=== PATIENT | female | born 1970 | race Caucasian/White ===

== ENCOUNTER → 2016-07-18 | Outpatient (CLI) | payer BC ==
[~2016-07-18] MED LIST: CATHETER FLUSH 10 ML SYR IV PRN; DOCU-143 PO; FAMO-119 PO; HYDR-3812 PO; IOHEXOL 350 MG/ML 150 ML (OMNIPAQUE 350) VIAL IV ONE; NS 100 ML (IVPB) BAG IV ONE; PANT40TA2 PO; PANT40TA3 PO; RT-ALBUTEROL SULF 2.5 MG/3 ML PRE-MIX VIAL IH ONE
--- NOTE | 2016-07-18 11:13 | Diagnostic Imaging Report ---
PROCEDURE: CT angiography of the chest with contrast. TECHNIQUE: Multiple contiguous axial images were obtained through the chest after uneventful bolus administration of intravenous contrast. Reconstructed CTA MIP acquisitions were also performed. INDICATION: Hypoxia. 125 mL of Omnipaque 350 is administered intravenously. FINDINGS: The pulmonary arteries are well opacified with no filling defects to suggest pulmonary embolism. The thoracic aorta is normal in caliber. There is no dissection or aneurysm. The heart size is normal. No pleural or pericardial effusion. There is no mediastinal mass. No mediastinal, hilar or axillary lymphadenopathy is seen. The lungs demonstrate minimal atelectasis or scarring in the right middle lobe and inferior lingula. Minimal atelectasis in the lower lobes is seen. Cholecystectomy clips are noted. The osseous structures appear grossly unremarkable. IMPRESSION: 1. No PE or aortic dissection. 2. Minimal atelectasis or scarring in the right middle lobe and inferior lingula. Dictated by: Dictated on workstation # [id number]
== END ==
LOC: RAD 07:47
PROVIDERS: ATTEND Internal Medicine Critical Care Medicine
DX: R06.02 Shortness of breath (principal); E66.9 Obesity, unspecified; Z90.49 Acquired absence of other specified parts of digestive tract
CPT/HCPCS: 71275; 94060; 94640; 94726; 94729

== ENCOUNTER 2016-12-01 20:04 | Outpatient (CLI) | payer BC ==
[~2016-12-01 20:04] MED LIST changes: -CATHETER FLUSH 10 ML SYR IV PRN; -IOHEXOL 350 MG/ML 150 ML (OMNIPAQUE 350) VIAL IV ONE; -NS 100 ML (IVPB) BAG IV ONE; -RT-ALBUTEROL SULF 2.5 MG/3 ML PRE-MIX VIAL IH ONE
== END 2016-12-02 06:15 | disposition home or self-care (01) ==
LOC: SLEEP 20:04
PROVIDERS: ATTEND Otolaryngology Otolaryngology/Facial Plastic Surgery
DX: G47.36 Sleep related hypoventilation in conditions classified elsewhere (principal); G47.10 Hypersomnia, unspecified
CPT/HCPCS: 95810

== ENCOUNTER → 2017-01-15 | Outpatient (CLI) | payer BC ==
--- NOTE | 2017-01-15 13:27 | Diagnostic Imaging Report ---
PROCEDURE: US abdomen complete. TECHNIQUE: Multiple real-time grayscale images were obtained over the abdomen in various projections. INDICATION: Dull pain in the right upper quadrant. FINDINGS: The pancreas is obscured by bowel gas. The liver is fairly homogeneous with no focal lesion seen. There is liver enlargement however measuring 22 cm craniocaudally. The color Doppler demonstrates hepatopetal flow in the portal vein. The visualized portion of the abdominal aorta is normal in caliber. The IVC visualized portions appear patent. The CBD is obscured by bowel gas. The spleen is 9.4 cm in length, normal. The left kidney is 13.2 and the right kidney is 11.4 cm in length. No hydronephrosis or focal lesion. No ascites or fluid collection is noted. The gallbladder has been removed. IMPRESSION: Hepatomegaly. Dictated by: Dictated on workstation # [id number]
== END ==
LOC: RAD 09:38
PROVIDERS: ATTEND Physician Assistant Medical
DX: R16.0 Hepatomegaly, not elsewhere classified (principal)
CPT/HCPCS: 76700

== ENCOUNTER → 2017-02-25 | Outpatient (CLI) | payer BC ==
--- NOTE | 2017-02-26 10:57 | Diagnostic Imaging Report ---
EXAMINATION: Bilateral screening mammogram 2D views with tomosynthesis. The current study was also evaluated with a Computer Aided Detection (CAD) system. INDICATION: Screening. PERSONAL HISTORY: No current complaints stated on the questionnaire. COMPARISON: 02/24/2016. FINDINGS: The breasts are composed of scattered fibroglandular densities. There is slightly more dense parenchyma in the outer aspect of the right breast. Benign-appearing calcifications are seen. Allowing for technique and positional differences, no suspicious change is seen. IMPRESSION: No significant change. ACR BI-RADS Category 2: Benign findings. Result letter will be mailed to the patient. Note: At least 10% of breast cancer is not imaged by mammography. Dictated by: Dictated on workstation # [id number]
== END ==
LOC: RAD 09:53
PROVIDERS: ATTEND Physician Assistant Medical
DX: Z12.31 Encounter for screening mammogram for malignant neoplasm of breast (principal)
CPT/HCPCS: 77067

== ENCOUNTER 2018-01-06 12:38 | Outpatient (CLI) | payer BC ==
[~2018-01-06] VITALS: Ht 162.6 cm; Wt 95.3 kg
[~2018-01-06 12:38] MED LIST changes: +ACHD5005 PO; -HYDR-3812 PO; +METO-370 PO
[2018-01-06] MEDS ORDERED: FAMO20TA45 PO (13:21)
== END 2018-01-06 13:24 | disposition home or self-care (01) ==
LOC: PREOP 12:38
PROVIDERS: ATTEND Otolaryngology Otolaryngology/Facial Plastic Surgery
DX: Z01.818 Encounter for other preprocedural examination (principal)

== ENCOUNTER 2018-01-09 06:01 | Day surgery (SDC) | payer BC ==
[~2018-01-09] VITALS: Ht 162.6 cm; Wt 95.3 kg
[~2018-01-09 06:01] MED LIST changes: +FAMO20TA45 PO
[2018-01-09 06:35] VITALS: BP 122/78
[2018-01-09] MEDS ORDERED: DEXAMETHASONE 10 MG/ML (DECADRON) 1 ML VIAL ONE (06:49)
[2018-01-09] MEDS ORDERED: SEVOFLURANE (ULTANE) 15 ML INHAL SOLN ONE (06:49)
[2018-01-09] MEDS ORDERED: ROCURONIUM 10 MG/ML 5 ML SYRINGE IV ONE ×2 (06:49→06:55)
[2018-01-09] MEDS ORDERED: MIDAZOLAM 2 MG/2 ML (VERSED) VIAL ONE (06:49)
[2018-01-09] MEDS ORDERED: proPOfol 200 MG/20 ML (DIPRIVAN) VIAL IV ONE (06:49)
[2018-01-09] MEDS ORDERED: fentaNYL INJECTION 100 MCG/2 ML AMP ONE (06:49)
[2018-01-09] MEDS ORDERED: FAMOTIDINE 20MG/2ML IV (PEPCID) ONE (06:49)
[2018-01-09] MEDS ORDERED: LIDOCAINE PF 2% 5 ML (XYLOCAINE) VIAL ONE (06:49)
[2018-01-09] MEDS ORDERED: SCOPOLAMINE 1.5 MG (TRANSDERM-SCOP) PATCH ONE (06:49)
[2018-01-09] MEDS ORDERED: ONDANSETRON 4 MG/2 ML (SDV) Z0FRAN ONE ×2 (06:49)
--- NOTE | 2018-01-09 06:57 | Progress Note-Pre Operative ---
Pre-Operative Progress Note H&P Reviewed The H&P was reviewed, patient examined and no changes noted. Date Seen by Provider: Jan 09, 2018 Time Seen by Provider: 06: Date H&P Reviewed: Jan 09, 2018 Time H&P Reviewed: :30 Pre-Operative Diagnosis: Bilat hyper of Inf Turbs with Nasal Congestion JUAQUIN WELLS MD Jan 09, 2018 6:56 am
[2018-01-09] MEDS ORDERED: SCOPOLAMINE 1.5 MG (TRANSDERM-SCOP) PATCH TD ONE (07:00)
[2018-01-09] MEDS ORDERED: ONDANSETRON 4 MG/2 ML (SDV) Z0FRAN IV ONE (07:00)
[2018-01-09] MEDS ORDERED: FAMOTIDINE 20MG/2ML IV (PEPCID) IV ONE (07:00)
[2018-01-09] MEDS ORDERED: LIDOCAINE/EPI 1%-1:200,000 (XYLOCAINE) 10 ML VIAL ONE (07:19)
[2018-01-09] MEDS ORDERED: PHENYLEPHRINE 0.5% NASAL SPR (NEO-SYNEPHRINE) REG ONE (07:19)
[2018-01-09] MEDS ORDERED: LACTATED RINGERS 1,000 ML IV PRN (07:20)
[2018-01-09] MEDS ORDERED: NEOSTIGMINE 1 MG/ML 5 ML SYRINGE ONE (07:50)
[2018-01-09] MEDS ORDERED: GLYCOPYRROLATE 0.2 MG/ML (ROBINUL) 2 ML VIAL ONE (07:50)
--- NOTE | 2018-01-09 07:52 | Progress Note-Post Operative ---
Post-Operative Progess Note Surgeon (s)/Central Station Operator (s) Surgeon JUAQUIN WELLS MD Central Station Operator n/a Pre-Operative Diagnosis Bilat hyper of Inf Turbs with Nasal Congestion Post-Operative Diagnosis same Post-Op Procedure Note Date of Procedure: Jan 09, 2018 Name of Procedure Performed: Bilat PArtial Reduction of the INferior Turbinates Description & Findings Description and Findings: n/a Anesthesia Type GET Estimated Blood Loss minimal Packing none. Specimen(s) collected/removed None JUAQUIN WELLS MD Jan 09, 2018 7:52 am
[2018-01-09] MEDS ORDERED: D5 1/2 NS W/KCL 20 MEQ/L 1,000 ML IV SCH (07:54)
[2018-01-09] MEDS ORDERED: PROMETHAZINE INJ 25 MG/ML (PHENERGAN) AMP IVP PRN (08:00)
[2018-01-09] MEDS ORDERED: HYDROcodone/APAP 5 MG/325 MG (LORTAB) TAB PO PRN (08:00)
[2018-01-09] MEDS ORDERED: ACETAMINOPHEN 325 MG TABLET PO PRN (08:00)
[2018-01-09] MEDS ORDERED: morphine INJ 10 MG/ML 1ML (SYR OR VIAL) IVP ONE (08:15)
[2018-01-09] MEDS ORDERED: fentaNYL INJECTION 100 MCG/2 ML AMP IVP ONE (08:15)
[2018-01-09] MEDS ORDERED: ONDANSETRON 4 MG/2 ML (SDV) Z0FRAN IVP PRN (08:15)
[2018-01-09] MEDS ORDERED: HYDR-3812 PO (08:36)
[2018-01-09 08:45] VITALS: BP 115/64
[2018-01-09] MEDS ORDERED: ACETAMINOPHEN 500 MG TAB (TYLENOL) ONE (09:14)
[2018-01-09 09:15] VITALS: BP 116/64
[2018-01-09 09:30] VITALS: BP 116/64
[2018-01-09] MEDS ORDERED: ACETAMINOPHEN 500 MG TAB (TYLENOL) PO ONE (10:00)
--- NOTE | 2018-01-09 18:27 | Anesthesia-General Post-Op ---
General Patient Condition Mental Status/LOC: Same as Preop Cardiovascular: Satisfactory Nausea/Vomiting: Absent Respiratory: Satisfactory Pain: Controlled Complications: Absent Post Op Complications Complications None Follow Up Care/Instructions Patient Instructions None needed. Anesthesia/Patient Condition Patient Condition Patient was seen after the procedure this morning and she was doing well, no complaints, stable vital signs, no apparent adverse anesthesia problems. EMMA OLIVA DO Jan 09, 2018 18:27
== END 2018-01-09 09:43 | disposition home or self-care (01) ==
LOC: SDC 06:01
PROVIDERS: ATTEND Otolaryngology Otolaryngology/Facial Plastic Surgery
DX: J34.3 Hypertrophy of nasal turbinates (principal); I10 Essential (primary) hypertension; K21.9 Gastro-esophageal reflux disease without esophagitis; Z79.899 Other long term (current) drug therapy
CPT/HCPCS: 84703; 87081

== ENCOUNTER → 2018-02-26 | Outpatient (CLI) | payer BC ==
[~2018-02-26] MED LIST changes: +HYDR-3812 PO
--- NOTE | 2018-02-26 10:39 | Diagnostic Imaging Report ---
Indication: Routine screening. Comparison is made with prior study 02/25/2017 and 02/24/2016. 2-D and 3-D bilateral screening mammography was performed with CAD. Both breasts are heterogeneously dense, limiting the sensitivity of mammography. The parenchymal pattern is stable. No mass or malignant appearing microcalcifications are seen. Axillae are unremarkable. Impression: BI-RADS category one No mammographic features suspicious for malignancy are identified. ACR BI-RADS Category 1: Negative. Result letter will be mailed to the patient. Note: At least 10% of breast cancer is not imaged by mammography. Dictated by: Dictated on workstation # [id number]
== END ==
LOC: RAD 08:05
PROVIDERS: ATTEND Nurse Practitioner
DX: Z12.31 Encounter for screening mammogram for malignant neoplasm of breast (principal)
CPT/HCPCS: 77067

== ENCOUNTER → 2019-02-27 | Outpatient (CLI) | payer BC ==
[~2019-02-27] MED LIST changes: -METO-370 PO; +METO50TA7 PO
--- NOTE | 2019-03-02 09:06 | Diagnostic Imaging Report ---
INDICATION: Screening The current study was also evaluated with a Computer Aided Detection (CAD) system. 3-D Tomographic imaging was also performed. Comparison made with prior examination 02/26/2018, 02/25/2017 and 02/24/2016. FINDINGS: There are scattered fibroglandular densities bilaterally. There are benign type calcifications. There is no dominant mass, spiculated lesion or suspicious calcification identified. The skin and nipples and axilla are unremarkable. IMPRESSION: Category 2 benign. ACR BI-RADS Category 2: Benign findings. Result letter will be mailed to the patient. Note: At least 10% of breast cancer is not imaged by mammography. Dictated by: Dictated on workstation # [id number]
== END ==
LOC: RAD 14:49
PROVIDERS: ATTEND Student in an Organized Health Care Education/Training Program
DX: Z12.31 Encounter for screening mammogram for malignant neoplasm of breast (principal)
CPT/HCPCS: 77067

== ENCOUNTER → 2020-10-31 | Outpatient (CLI) | payer OTHER ==
[~2020-10-31] MED LIST changes: -HYDR-3812 PO; -PANT40TA3 PO; +PANT40TA52 PO
--- NOTE | 2020-10-31 12:01 | Diagnostic Imaging Report ---
INDICATION: Routine screening. COMPARISON: 02/27/2019 and 02/26/2018. TECHNIQUE: 2D and 3D bilateral screening mammography was performed with CAD. FINDINGS: Both breasts are heterogeneously dense, limiting the sensitivity of mammography. The parenchymal pattern is stable. No mass or malignant-appearing microcalcifications are seen. There are benign calcifications. The axillae are unremarkable. IMPRESSION: No mammographic features suspicious for malignancy are identified. ACR BI-RADS Category 2: Benign findings. Result letter will be mailed to the patient. Note: At least 10% of breast cancer is not imaged by mammography. Dictated by: Dictated on workstation # [id number]
== END ==
LOC: RAD 11:00
PROVIDERS: ATTEND Obstetrics & Gynecology
DX: Z12.31 Encounter for screening mammogram for malignant neoplasm of breast (principal)
CPT/HCPCS: 77063; 77067

== ENCOUNTER 2021-01-17 06:04 | Outpatient (CLI) | payer OTHER ==
[~2021-01-17] VITALS: Ht 162.6 cm; Wt 101.6 kg
[2021-01-17] MEDS ORDERED: ROSU5TAB PO (15:02)
== END 2021-01-17 15:22 | disposition home or self-care (01) ==
LOC: PREOP 06:04
PROVIDERS: ATTEND Surgery
DX: Z01.818 Encounter for other preprocedural examination (principal)

== ENCOUNTER 2021-01-24 08:26 | Day surgery (SDC) | payer OTHER ==
[~2021-01-24] VITALS: Ht 162.6 cm; Wt 101.6 kg
[~2021-01-24 08:26] MED LIST changes: +ROSU5TAB PO
[2021-01-24] MEDS ORDERED: LACTATED RINGERS 1,000 ML IV ONE (08:30)
[2021-01-24] MEDS ORDERED: LACTATED RINGERS 1,000 ML IV STA (08:37)
[2021-01-24 08:45] VITALS: BP 149/85
[2021-01-24] MEDS ORDERED: HURRICAINE EXT TUBE (BENZOCAINE) XX PRN (08:45)
[2021-01-24] MEDS ORDERED: MIDAZOLAM 2 MG/2 ML (VERSED) VIAL ONE (09:34)
[2021-01-24] MEDS ORDERED: PROPOFOL INJECTION 50 ML IV ONE (09:34)
[2021-01-24 10:06] VITALS: BP 146/85
[2021-01-24 10:10] VITALS: BP 144/70
--- NOTE | 2021-01-24 10:10 | Progress Note-Post Operative ---
Post-Operative Progess Note Surgeon (s)/Administrative Asst (s) Surgeon STEVEN JONES DO Administrative Asst: na Pre-Operative Diagnosis family hx colon cancer, gerd Post-Operative Diagnosis hiatal hernia, GE polyp, diverticulosis Procedure & Operative Findings Date of Procedure 01/24/21 Procedure Performed/Findings EGD with antral biopsy and hot biopsy polypectomy at GE junction, colonoscopy Anesthesia Type per IMAGERY ANALYST Estimated Blood Loss Estimated blood loss (mL): scant Specimens/Packing Specimens Removed GE junction polyp via hot biopsy STEVEN JONES DO Jan 24, 2021 10:10
[2021-01-24] MEDS ORDERED: PANT40TA2 PO (10:11)
--- NOTE | 2021-01-24 10:11 | Discharge Inst-Simple/Standard ---
Discharge Inst-Standard Discharge Medications New, Converted or Re-Newed RX: Transmitted to Pharmacy Patient Instructions/Follow Up Plan of Care/Instructions/FU: 2 weeks Rafi Activity as Tolerated: Yes Discharge Diet: Liquid Diet (for 24 hours then advance as tolerates) STEVEN JONES DO Jan 24, 2021 10:11
[2021-01-24 10:15] VITALS: BP 138/79
--- NOTE | 2021-01-24 18:28 | OPERATIVE REPORT ---
DATE OF SERVICE: 01/24/2021 PREOPERATIVE DIAGNOSIS: Family history of colon cancer and gastroesophageal reflux disease. POSTOPERATIVE DIAGNOSES: Hiatal hernia, GE polyp and diverticulosis. PROCEDURES PERFORMED: Esophagogastroduodenoscopy with biopsy of the antrum and hot biopsy polypectomy of the GE junction, and colonoscopy. SURGEON: Steven Mckee DO. ANESTHESIA: Per HOSPITAL PERSONNEL DIRECTOR. ESTIMATED BLOOD LOSS: Scant. COMPLICATIONS: None. INDICATIONS FOR PROCEDURE: The patient is a 50-year-old female with family history of colon cancer and GERD symptoms. She understands the risks and benefits of the procedure and wished to proceed with the procedure. Consent was signed in the chart. DESCRIPTION OF PROCEDURE: The patient was taken to the endoscopy suite and placed in a left lateral recumbent position. A timeout was performed. Scope was inserted in the mouth, down the esophagus, stomach and into the duodenum without difficulty. There were no polyps, masses or ulcerations within the duodenum. Scope was slowly retracted back into the stomach, where it was further insufflated. Biopsy of the antrum was obtained. Scope was retroflexed noting a hiatal hernia and also appearance of GE polyp. Scope was returned to its normal position, slowly withdrawn to the distal esophagus. A hot biopsy polypectomy of the GE junction polyp was obtained. There was a little bit of bleeding from this area, but appeared to be . Scope was then slowly retracted back until completely remove, noting no other pathology. Digital rectal exam was performed. There were no palpable polyps, masses or ulcerations. Scope was inserted in the rectum and advanced all the way to cecum with minimal difficulty. Prep was adequate. Scope was then slowly retracted back. No polyps, masses or ulcerations in the cecum, ascending, transverse, descending and sigmoid colon. Within the sigmoid colon, some diverticulosis was present. Once in the rectum, scope was retroflexed noting no other pathology. Scope was returned to its normal position, slowly withdrawn until completely removed. The patient tolerated procedure well without any complications and she was taken to the recovery room in stable condition. RECOMMENDATIONS: The patient will start Protonix 40 mg daily. We will stop her Pepcid. The patient with diverticulosis, recommend high fiber diet. The patient with family history of colon cancer, would recommend a repeat colonoscopy in five years. Unless any issues before, will be seen at that time. CC: Curtis Ricks - requested, unable to deliver. CC: Natalie Amin - requested, unable to deliver. Job ID: [id number] DocumentID: [id number] Dictated Date: 01/24/2021 10:14:44 Supervisor Cytogenetic Laboratory Date: 01/24/2021 18:28:05 Dictated By: STEVEN MCKEE DO
--- NOTE | 2021-01-25 09:56 | Anesthesia-General Post-Op ---
MAC Patient Condition Mental Status/LOC: Same as Preop Cardiovascular: Satisfactory Nausea/Vomiting: Absent Respiratory: Satisfactory Pain: Controlled Complications: Absent Post Op Complications Complications None Follow Up Care/Instructions Patient Instructions None needed. Anesthesiology Discharge Order Discharge Order Patient is doing well, no complaints, stable vital signs, no apparent adverse anesthesia problems. No complications reported per nursing. AYSE VALENZUELA CRNA Jan 25, 2021 09:56
== END 2021-01-24 10:55 | disposition home or self-care (01) ==
LOC: ENDO 08:26
PROVIDERS: ATTEND Surgery
DX: Z12.11 Encounter for screening for malignant neoplasm of colon (principal); K22.70 Barrett's esophagus without dysplasia; K22.82 Esophagogastric junction polyp; K57.30 Diverticulosis of large intestine without perforation or abscess without bleeding; K44.9 Diaphragmatic hernia without obstruction or gangrene; K21.9 Gastro-esophageal reflux disease without esophagitis; I10 Essential (primary) hypertension; E78.5 Hyperlipidemia, unspecified; Z80.0 Family history of malignant neoplasm of digestive organs; Z79.899 Other long term (current) drug therapy
CPT/HCPCS: 84703

== ENCOUNTER → 2021-02-24 | Outpatient (CLI) | payer OTHER | LOC: CARD 14:57 | PROVIDERS: ATTEND Internal Medicine Cardiovascular Disease | DX: I51.0 Cardiac septal defect, acquired (principal); I10 Essential (primary) hypertension | CPT/HCPCS: 93306 ==

== ENCOUNTER → 2021-03-20 | Outpatient (CLI) | payer OTHER ==
--- NOTE | 2021-03-20 09:34 | Diagnostic Imaging Report ---
PROCEDURE: MRI lumbar spine. TECHNIQUE: Multiplanar, multisequence MRI of the lumbar spine was performed without contrast. INDICATION: Back pain. COMPARISON: None. FINDINGS: There are 5 lumbar-type vertebral bodies for the purposes of this report. Normal alignment. Vertebral body heights preserved. Modic type II degenerative endplate changes in the superior endplate of L3. Bone marrow signal is otherwise unremarkable. No abnormal signal in the conus which terminates at L1. Normal morphology of the cauda equina. Visualized pelvis and paravertebral soft tissues are unremarkable. L1-L2: Normal. L2-L3: No spinal canal or lateral recess narrowing. No neural foraminal narrowing. L3-L4: Central disc protrusion results in mild spinal canal and bilateral lateral recess narrowing. Mild facet arthropathy. No substantial neural foraminal narrowing. L4-L5: Small central disc protrusion. Mild facet arthropathy. Mild spinal canal and bilateral lateral recess narrowing. Mild bilateral neural foraminal narrowing. L5-S1: Left paracentral disc protrusion results in moderate left lateral recess narrowing. Mild to moderate left neural foraminal narrowing. No spinal canal narrowing. IMPRESSION: 1. Spondylotic changes result in no high-grade spinal canal stenosis. 2. Scattered mild and moderate lateral recess and neural foraminal narrowing detailed above level by level. 3. No acute osseous findings. Modic type II degenerative endplate changes in the superior endplate of L3. Dictated by: Dictated on workstation # [id number]
== END ==
LOC: RAD 08:00
PROVIDERS: ATTEND Pain Medicine Interventional Pain Medicine
DX: M47.816 Spondylosis without myelopathy or radiculopathy, lumbar region (principal); M51.26 Other intervertebral disc displacement, lumbar region; M51.27 Other intervertebral disc displacement, lumbosacral region; M48.061 Spinal stenosis, lumbar region without neurogenic claudication; M48.07 Spinal stenosis, lumbosacral region
CPT/HCPCS: 72148

== ENCOUNTER → 2021-07-31 | Outpatient (CLI) | payer OTHER ==
--- NOTE | 2021-07-31 17:55 | Diagnostic Imaging Report ---
INDICATION: Abnormal uterine bleeding. Pelvic sonography performed in the routine fashion, including transabdominal and transvaginal views. The uterus measures 7.7 x 3.7 x 5.5 cm. Uterus is anteverted. There is no myometrial mass. Endometrium was thickened at 1.5 cm, with fairly homogeneous appearance. The right ovary measured 2.6 x 1.4 x 1.4 cm appeared normal with normal color flow. The left ovary measured 5.6 x 2.9 x 3.6 cm and contains normal color flow. There are couple cysts of the left ovary, largest measured 3.6 x 3.7 x 2.7 cm. There is no free fluid IMPRESSION: 3.7 cm cyst in left ovary. Normal-appearing right ovary. The uterus shows no myometrial mass. There is endometrial thickening, with endometrium measuring 1.5 cm. Dictated by: Dictated on workstation # [id number]
== END ==
LOC: RAD 13:45
PROVIDERS: ATTEND Obstetrics & Gynecology
DX: N83.202 Unspecified ovarian cyst, left side (principal); R93.89 Abnormal findings on diagnostic imaging of other specified body structures
CPT/HCPCS: 76830; 76856

== ENCOUNTER → 2021-11-03 | Outpatient (CLI) | payer OTHER ==
--- NOTE | 2021-11-03 17:19 | Diagnostic Imaging Report ---
Indication: Routine screening. Comparison is made to prior mammograms 10/31/2020 and 02/27/2019. 2-D and 3-D bilateral screening mammography was performed with CAD. Scattered fibroglandular densities are identified bilaterally. The parenchymal pattern is stable. No mass is detected. No malignant-appearing microcalcifications are seen. Axillae are unremarkable. IMPRESSION: BI-RADS Category 1 No mammographic features suspicious for malignancy are identified. ACR BI-RADS Category 1: Negative. Result letter will be mailed to the patient. Note: At least 10% of breast cancer is not imaged by mammography. Dictated by: Dictated on workstation # [id number]
== END ==
LOC: RAD 14:53
PROVIDERS: ATTEND Obstetrics & Gynecology
DX: Z12.31 Encounter for screening mammogram for malignant neoplasm of breast (principal)
CPT/HCPCS: 77063; 77067

== ENCOUNTER 2022-02-02 12:03 | Day surgery (SDC) | payer OTHER ==
[~2022-02-02] VITALS: Ht 162.5 cm; Wt 101.6 kg
[2022-02-02] MEDS ORDERED: LACTATED RINGERS 1,000 ML IV STA (12:05)
[2022-02-02] MEDS ORDERED: HURRICAINE EXT TUBE (BENZOCAINE) XX PRN (12:15)
--- NOTE | 2022-02-02 12:23 | Progress Note-Pre Operative ---
Pre-Operative Progress Note Date of Available H&P: Jan 22, 2022 Date H&P Reviewed: Feb 02, 2022 Time H&P Reviewed: 12:23 History & Physical: H&P Reviewed, Patient Examed, No changes noted Pre-Operative Diagnosis: History of Philip's STEVEN JONES DO Feb 02, 2022 12:23
[2022-02-02 12:25] VITALS: BP 149/79
[2022-02-02] MEDS ORDERED: MIDAZOLAM 2 MG/2 ML (VERSED) VIAL ONE (12:48)
[2022-02-02] MEDS ORDERED: PROPOFOL INJECTION 50 ML IV ONE (12:48)
--- NOTE | 2022-02-02 13:10 | Discharge Inst-Simple/Standard ---
Discharge Inst-Standard Patient Instructions/Follow Up Plan of Care/Instructions/FU: Follow up with Dr. Mckee in 2 weeks Activity as Tolerated: Yes Discharge Diet: No Restrictions, Regular Diet STEVEN MCKEE DO Feb 02, 2022 13:10
--- NOTE | 2022-02-02 13:14 | Anesthesia-General Post-Op ---
MAC Patient Condition Mental Status/LOC: Same as Preop Cardiovascular: Satisfactory Nausea/Vomiting: Absent Respiratory: Satisfactory Pain: Controlled Complications: Absent Post Op Complications Complications None Follow Up Care/Instructions Patient Instructions None needed. Anesthesiology Discharge Order Discharge Order Patient is doing well, no complaints, stable vital signs, no apparent adverse anesthesia problems. No complications reported per nursing. TAM CERVANTES CRNA Feb 02, 2022 13:14
[2022-02-02 13:15] VITALS: BP 151/76
[2022-02-02 13:20] VITALS: BP 151/74
[2022-02-02 13:25] VITALS: BP 140/67
[2022-02-02 13:55] VITALS: BP 140/67
--- NOTE | 2022-02-02 22:13 | OPERATIVE REPORT ---
DATE OF SERVICE: 02/02/2022 PREOPERATIVE DIAGNOSIS: History of Philip's. POSTOPERATIVE DIAGNOSIS: Very small hiatal hernia. PROCEDURE: EGD with biopsies. SURGEON: Steven Mckee DO ANESTHESIA: Per AMUSEMENT OR RECREATION CARD CHECKER. ESTIMATED BLOOD LOSS: None. COMPLICATIONS: None. INDICATIONS: The patient is a 51-year-old female with history of Philip's seen in EGD for further evaluation. She understands risks and benefits of the procedure and wished to proceed. Consent was signed in the chart. DESCRIPTION OF PROCEDURE: The patient was taken to the endoscopy suite, placed in left lateral recumbent position. A timeout was performed. Scope was inserted in the mouth, down the esophagus, stomach, into the duodenum without difficulty. No polyps, mass, ulceration of the duodenum. Scope was slowly retracted back to the stomach where it was further insufflated. Slight erythematous changes in the antrum, otherwise no other pathology noted. Biopsy of the antrum was obtained. Scope was retroflexed, noting a very small hiatal hernia. No other pathology. Scope was returned to its normal position, slowly withdrawn to distal esophagus. No polyps, masses or ulcerations. Four biopsies were obtained, one from each quadrant and scope was then slowly retracted back until completely remove, noting no other pathology. The patient tolerated the procedure well without complications, taken to recovery room in stable condition. RECOMMENDATIONS: The patient would need repeat EGD in approximately 2 to 3 years. She will follow up on pathology. Further recommendations pending results. Job ID: [id number] DocumentID: [id number] Dictated Date: 02/02/2022 13:23:11 Waste Machine Offbearer Date: 02/02/2022 22:12:00 Dictated By: STEVEN MCKEE DO
== END 2022-02-02 13:55 | disposition home or self-care (01) ==
LOC: ENDO 12:03
PROVIDERS: ATTEND Surgery
DX: K44.9 Diaphragmatic hernia without obstruction or gangrene (principal); K31.89 Other diseases of stomach and duodenum; K20.90 Esophagitis, unspecified without bleeding; Z87.19 Personal history of other diseases of the digestive system; Z79.899 Other long term (current) drug therapy; E66.9 Obesity, unspecified; Z68.38 Body mass index [BMI] 38.0-38.9, adult
CPT/HCPCS: 88305

== ENCOUNTER → 2022-03-21 | Outpatient (CLI) | payer OTHER ==
[~2022-03-21] MED LIST changes: +CATHETER FLUSH 10 ML SYR IVP PRN
[2022-03-21 09:15] VITALS: BP 158/86
--- NOTE | 2022-03-21 12:26 | Cardiology Stress Test Report ---
Stress Test Report Date of Procedure/Referring: Date of Procedure: Mar 21, 2022 PCP Shreya Ricks MD Admitting Physician Admitting Physician: Attending Physician: Candy Dunlap MD Baseline Heart Rate: 75 Baseline Blood Pressure: Blood Pressure Systolic: 158 Blood Pressure Diastolic: 86 Baseline Vitals Vital Signs Date Time Temp Pulse Resp B/P (MAP) Pulse Ox O2 Delivery O2 Flow Rate FiO2 03/21/22 09:15 77 18 158/86 (110) 96 Room Air Baseline EKG: Baseline EKG: NSR Summary After explaining the procedure to the patient, she signed a consent and then brought to the stress nuclear laboratory. Patient received 0.4 mg Lexiscan for stress test, ECG, heart rate and blood pressure were monitored continuously. Resting and stress dose of radio tracer were injected, imaging was acquired and reviewed in short axis, horizontal long axis and vertical long axis views. TID: 0.95 SSS: 4 SDS: 4 EF: 74 1. Patient tolerated Lexiscan well 2. Breast attenuation with mild decrease uptake involving the mid to apical anterior lateral wall with mild reversibility most probably due to breast attenuation, overall no significant ischemia or infarction on SPECT images 3. Normal left ventricular size, ejection fraction 74% CANDY DUNLAP MD Mar 21, 2022 12:26
== END ==
LOC: CARD 07:45
PROVIDERS: ATTEND Internal Medicine Cardiovascular Disease
DX: I10 Essential (primary) hypertension (principal)
CPT/HCPCS: 78452; 93017